=== PATIENT | female | born 1980 | race Caucasian/White ===

== ENCOUNTER 2017-02-21 21:40 | Emergency (ER) | payer BC, OTHER ==
[2017-02-21 22:41] VITALS: BMI 28.3
--- NOTE | 2017-02-21 23:13 | OBHP ---
Datetime: 02/21/2017 22:55 IP Adm Impression: Term, intrauterine IP Admit Plan: Discharge home Admit Comment, IP Provider: 36 yo G1 at 37+5 wks w/ EDC 03/09/2017, IVF conceived (both pt and FOB a re thalassemia carriers), c/o bloody mucus spotting throughout the day. Pt reports that she has cram ps every 30-60 minutes, occur when she is spotting. Pt denies LOF, reports FM. Pt denies recent exa m or sex. Pt reports that she had diarrhea this am. PMH: Healthy, carrier of thalassemia PSH: None Meds: PNVs All: NKDA Fam hx: F-DM Soc hx: Pt denies tobacco, alcohol, and illicit drug use [employer] hx: reg periods, denies any h/o STDs, abn paps PE: AFVSS Gen'l pt appears comfortable in stretcher Abd: soft, NT, gravid Ext: NT FHT: as above [place]: as above Speculum and VE: as above A/P: 36 yo G1 at 37+5 wks w/ vaginal spotting today. Speculum exam reveals small amt pink d/c, no active bleeding. NST reactive. Pt encouraged to PO hydrate and given labor precautions. Case disc ussed w/ Dr. Olsen. Pt discharged home to f/u on , 02/26/2017. Extremities - PN: Normal Abdomen - PN: Normal General - PN: Normal FHR - Baseline A Provider: 130s Membranes, Provider: Intact Contraction Comments Provider: irregular Comments, ACOG Physical Exam: Speculum exam: light pink d/c, no active bleeidng EGA AdmitDate IP: 37.5 Vital Signs Provider: Reviewed; Within Normal Limits IP Chief Complaint: Vaginal bleeding NICHD Variability Prov Fetus A: Moderate 6-25bpm NICHD Accel Fetus A IP Provider: 15X15 FHR Category Provider Fetus A: Category I NICHD Decel Fetus A IP Provider: None Dilatation, Provider: 0 Effacement, Provider: 0 Station, Provider: -3 Genitourinary Exam: Abnormal
== END 2017-02-21 23:08 | disposition home or self-care (01) ==
LOC: H.EROB2 21:40
DX: O26.853 Spotting complicating pregnancy, third trimester (principal); Z3A.37 37 weeks gestation of pregnancy

== ENCOUNTER 2017-02-22 03:09 | Inpatient (IN) | payer BC ==
[2017-02-21 22:41] VITALS: BMI 28.3
[2017-02-22] MEDS: Lactated Ringer's 1,000 ML IV SCH ×5 (05:00→15:30)
[2017-02-22 05:16] LABS: BASO # 0.1 K/uL (0.0-0.2); BASO % 0.8 % (0.0-2.0); EOS # 0.2 K/uL (0.0-0.7); EOS % 2.2 % (0.0-4.0); HEMOGLOBIN 10.1 g/dL (12.0-16.0); LYMPH # 2.3 K/uL (1.0-4.3); MEAN CORPUSCULAR HEMOGLOBIN 21.6 pg (27.0-31.0); MEAN CORPUSCULAR HGB CONC 31.6 g/dL (33.0-37.0); MEAN PLATELET VOLUME 9.6 fl (7.2-11.7); MONO # 0.7 K/uL (0.0-0.8); MONO % 6.9 % (0.0-10.0); NEUT # 7.4 K/uL (1.8-7.0); NEUT % 69.1 % (50.0-75.0); NRBC % 0.1 % (0.0-0.0); RBC 4.68 Mil/uL (3.80-5.20); RED CELL DISTRIBUTION WIDTH 14.7 % (11.5-14.5); WHITE BLOOD COUNT 10.7 K/uL (4.8-10.8)
[2017-02-22 05:22] LABS: MEAN CELL VOLUME 68.4 fl (81.0-99.0)
[2017-02-22 05:24] VITALS: O2SAT 100
[2017-02-22 05:24] LABS: BLOOD UREA NITROGEN 6 mg/dl (7-17); CALCIUM 9.7 mg/dL (8.4-10.2); GFR AFRICAN-AMERICAN > 60; GFR NON-AFRICAN AMERICAN > 60
--- NOTE | 2017-02-22 06:06 | OBADHP ---
Datetime: 02/22/2017 05:47 Admit Comment, IP Provider: GBS neg Admit and start cervidil augumentation Extremities - PN: Normal Abdomen - PN: Abnormal Back - PN: Normal Breast - PN: Normal Lungs - PN: Normal Heart - PN: Normal Thyroid - PN: Normal Neurologic - PN: Normal HEENT - PN: Normal General - PN: Normal Presentation-Admit: Ceph FHR - Baseline A Provider: 150's Amniotic Fluid Color, Provider: Clear Membranes, Provider: Ruptured Comments, ACOG Physical Exam: Abd gravid, NT fundus at term Ext no calf tenderness Gestation - Est Wks by US: 37 w 6d Pool Provider: Positive IP Hx Assessment: The History has been Reviewed and is Current IP Chief Complaint: Suspected ruptured membranes NICHD Variability Prov Fetus A: Moderate 6-25bpm NICHD Accel Fetus A IP Provider: 10X10 NICHD Decel Fetus A IP Provider: None Dilatation, Provider: 1cm Effacement, Provider: 40% Genitourinary Exam: Normal DTRs - PN: Normal EGA AdmitDate IP: 37.6 IP Adm Impression: Term, intrauterine ; Ruptured Membranes IP Admit Plan: Admit to unit; Initiate labor augmentation protocol Datetime: 02/21/2017 22:55 Contraction Comments Provider: irregular Vital Signs Provider: Reviewed; Within Normal Limits FHR Category Provider Fetus A: Category I Station, Provider: -3
[2017-02-22] MEDS ORDERED: Bupivacaine HCl 0.25% PF (10 ml) Inj ONE (11:19)
[2017-02-22] MEDS ORDERED: Fentanyl/Bupivacaine HCl 250 ML EPI ONE (11:19)
--- NOTE | 2017-02-22 11:44 | OBDCSUM ---
Datetime: 02/21/2017 23:07 Discharge Diagnosis, Provider: Antepartum Bleeding
[2017-02-22] MEDS ORDERED: Oxytocin 30 units/LR 500ML 30 U/500 ML BAG IV ONE ×2 (13:19→13:26)
[2017-02-22] MEDS ORDERED: Oxytocin 20 units in LR 2,000 ML IV ONE (13:26)
[2017-02-22] MEDS ORDERED: Lidocaine 1% Inj (20ml) ONE (13:26)
[2017-02-22] MEDS ORDERED: cefOXitin Sodium 1 GM in Sodium Chloride 0.9% 100 ML IVPB ONE (18:00)
--- NOTE | 2017-02-22 18:16 | OBDS ---
DELIVERY PERSONNEL Delivery Doctor: Wade Olsen MD Wharf Laborer: Judith Salmeron RN MATERNAL INFORMATION Delivery Anesthesia: Epidural Medications in Delivery: pitocin Estimated Blood Loss (ml): 250cc Placenta Cultured: No Maternal Complications: None Provider Comments: Delivered a living baby girl, appears term cried spontaneously 9/9, AF darrel r. villamentous insertion of cord and snapped Placenta was partially retained and was mannually remov ed. Uterine cavity was mannually explored and no retained placental or membranes felt. Episiotomy re paired as above. Uterus contracted well no complications Tolerated procedure well Rectal done no de fects LABOR SUMMARY EDC: 03/09/2017 00:00 No. Babies in Womb: 1 Attempted: No Labor Anesthesia: Epidural LABOR INFORMATION Reason for Induction: Not Applicable Onset of Labor: 02/22/2017 01:00 (Annotations: pt SROM clear, moderate amount) Complete Dilatation: 02/22/2017 16:25 Cervical Ripening Agents: Cervidil Oxytocin: Augmentation Group B Beta Strep: Negative Antibiotics # of Doses: none Steroids Given: None Reason Steroids Not Administered: Not Applicable MEMBRANES Membranes Rupture Method: Spontaneous Rupture of Membranes: 02/22/2017 01:00 Length of Rupture (hrs): 16.60 Amniotic Fluid Color: Clear Amniotic Fluid Amount: Moderate Amniotic Fluid Odor: None STAGES OF LABOR Stage 1 hrs: 15 Stage 1 min: 25 Stage 2 hrs: 1 Stage 2 min: 11 Stage 3 hrs: 0 Stage 3 min: 10 Total Time in Labor hrs: 16 Total Time in Labor min: 46 VAGINAL DELIVERY Episiotomy: Median Laceration Extension: N/A Laceration Type: None Laceration Repair: Not Applicable Laceration Repair Note: A 2nd dg medial episiotomy was repaired using a 2-0 chromic without any comp lications. Initial Vag Sponge Count: 5 Final Vag Sponge Count: 5 Initial Vag Sharps Count: 1 Final Vag Sharps Count: 1 Sponge Count Correct: Yes Sharps Count Correct: Yes Count Comment: count correct CSECTION DELIVERY Primary Indication: N/A Secondary Indication: N/A CSection Urgency: N/A Labor: N/A CSection Incision: N/A BABY A INFORMATION Infant Delivery Date/Time: 02/22/2017 17:36 Method of Delivery: Vaginal Born in Route : No : N/A Forceps: N/A Vacuum Extraction: N/A Shoulder Dystocia : No SHOULDER DYSTOCIA BABY A Delivery Date/Time: 02/22/2017 17:36 PRESENTATION/POSITION BABY A Presentation: Cephalic Cephalic Presentation: Vertex Breech Presentation: N/A PLACENTA INFORMATION BABY A Placenta Delivery Time : 02/22/2017 17:46 Placenta Method of Delivery: Manual Removal Placenta Status: Delivered SCORES BABY A Heart Rate 1 min: >100 bpm Resp Effort 1 min: Good Cry Reflex Irritability 1 min: Cough or Sneeze or Pulls Away Muscle Tone 1 min: Active Motion Color 1 min: Body [place], Extremities Blue Resuscitation Effort 1 min: N/A SCORE 1 MIN: 9 Heart Rate 5 min: >100 bpm Resp Effort 5 min: Good Cry Reflex Irritability 5 min: Cough or Sneeze or Pulls Away Muscle Tone 5 min: Active Motion Color 5 min: Body [place], Extremities Blue Resuscitation Effort 5 min: N/A SCORE 5 MIN: 9 Resuscitation Effort 10 min: N/A INFORMATION BABY A Gestational Age at Delivery: 37+ Gestational Status: Term Outcome : Liveborn Condition : Stable Infant Sex: Female IDENTIFICATION/MEDS BABY A ID Band Number: [id number] ID Band Location: Left Leg; Left Arm CORD INFORMATION BABY A No. Cord Vessels: 3 Nuchal Cord : N/A Cord Blood Taken: Yes Suction: Mouth; Nose
[2017-02-22] MEDS ORDERED: Oxytocin 30 units/LR 500ML 30 U/500 ML BAG IV SCH (18:19)
[2017-02-22] MEDS ORDERED: Oxycodone/Acetaminophen 5/325 mg Tab PO PRN ×2 (18:19→19:33)
[2017-02-23 07:24] LABS: HEMOGLOBIN 9.6 g/dL (12.0-16.0); MEAN CELL VOLUME 67.8 fl (81.0-99.0); MEAN CORPUSCULAR HEMOGLOBIN 21.3 pg (27.0-31.0); MEAN CORPUSCULAR HGB CONC 31.4 g/dL (33.0-37.0); RBC 4.51 Mil/uL (3.80-5.20); RED CELL DISTRIBUTION WIDTH 14.6 % (11.5-14.5); WHITE BLOOD COUNT 19.2 K/uL (4.8-10.8)
[2017-02-23] MEDS ORDERED: Benzocaine/Menthol SPRAY TOP PRN (08:11)
--- NOTE | 2017-02-23 12:12 | OBPPN ---
Datetime: 02/23/2017 12:08 PP Pain Prov: Within normal limits PP Pain Prov comment: No SOB, chest pains or leg pains PP Nausea Prov: Denies PP Flatus Prov: Yes PP Breasts Prov: Normal PP Heart Prov: Normal PP Lungs Prov: Normal PP Abdomen/Uterus Prov: Abnormal PP Lochia Prov: Normal PP Vulva/Perineum Prov: Abnormal PP CVA Tenderness Prov: Normal PP Extremities Prov: Normal PP C/S Incision Prov: Not Applicable PP Progress Prov: Normal PP Comments Phys Exam Prov: Breast NE, NT; Abd soft ND, fundus firm below the umb NT, Perineum repai red Ext no edema or calf tenderness PP Impression Prov: Normal progression PP Plan Prov: Continue present management PP Progress Note Prov: OOB and ambulation Continue PP care IP PP Procedures: None Vital Signs Provider PP: Reviewed
--- NOTE | 2017-02-24 06:49 | OBPPN ---
Datetime: 02/24/2017 06:45 PP Pain Prov: Within normal limits PP Pain Prov comment: No SOB, chest pains or leg pains PP Nausea Prov: Denies PP Flatus Prov: Yes PP Breasts Prov: Normal PP Heart Prov: Normal PP Lungs Prov: Normal PP Abdomen/Uterus Prov: Abnormal PP Lochia Prov: Normal PP Vulva/Perineum Prov: Abnormal PP CVA Tenderness Prov: Normal PP Extremities Prov: Normal PP C/S Incision Prov: Not Applicable PP Progress Prov: Normal PP Comments Phys Exam Prov: Breast soft not engorged NT; abd soft ND, fundus firm below the umb, NT; Perineum repaired, Ext no edema or calf tenderness PP Impression Prov: Normal progression PP Plan Prov: Discharge PP Progress Note Prov: D/C home with instructions IP PP Procedures: None
--- NOTE | 2017-02-24 06:49 | OBDCSUM ---
Datetime: 02/24/2017 06:47 Discharged to, Provider: Home Follow up at, Provider: Dr Olsen Disch Instr Activity: Bedrest; May be up to bathroom; May be up for meals; May Shower Disch Instr Diet: Regular Discharge Instructions, Provider: Routine instructions given Discharge Diagnosis, Provider: Term Delivered Follow up in weeks, Provider: 4-6 wks Disch Referrals: None Contraception discussed, Prov: Yes Disch Activity Restrictions: No exercising; No lifting; No driving; Minimize walking; Minimize stair -climbing; No sexual activity; Nothing in vagina - [place], tampons, douche Discharge Comment, Provider: Continue PNC vit Pelvic and bed rest Contraception after Delivery: Undecided
[2017-02-24 23:14] VITALS: BP 110/72; PULSE 86; RESP 20; TEMP 98.2
== END 2017-02-24 17:10 | disposition home or self-care (01) | DRG 775 ==
LOC: H.EROB2 03:09 → H.EROB 03:16 → H.L&D 04:00 → H.EROB2 04:14 → H.OB/GYN 20:15
PROVIDERS: ADMIT Specialist; ATTEND Specialist
PROC: 0W8NXZZ Division of Female Perineum, External Approach (ICD-10-PCS; principal; 2017-02-22)
PROC: 10E0XZZ Delivery of Products of Conception, External Approach (ICD-10-PCS; 2017-02-22)
PROC: 0KQM0ZZ Repair Perineum Muscle, Open Approach (ICD-10-PCS; 2017-02-22)
PROC: 4A1HXCZ Monitoring of Products of Conception, Cardiac Rate, External Approach (ICD-10-PCS; 2017-02-22)
DX: O70.1 Second degree perineal laceration during delivery (principal); Z37.0 Single live birth; Z3A.37 37 weeks gestation of pregnancy; O09.523 Supervision of elderly multigravida, third trimester